=== PATIENT | male | born 1945 | race Caucasian/White ===

== ENCOUNTER 2020-01-15 18:11 | Observation (INO) | payer MEDICARE, OTHER ==
[~2020-01-15] VITALS: Ht 175.3 cm; Wt 93.9 kg
--- NOTE | 2020-01-15 18:20 | NUR ---
Pt's complaints and status was discussed with MD [place] who ordered CT head no contrast.
[2020-01-15 19:50] LABS: BASOPHILS % (AUTO) 0.7 % (0-1); EOSINOPHILS # (AUTO) 0.1 X10'3 (0-0.9); EOSINOPHILS % (AUTO) 2.1 % (0-6); HEMATOCRIT 40.9 % (42.0-52.0); HEMOGLOBIN 14.2 g/dl (14.0-17.9); LYMPHOCYTES % (AUTO) 18.5 % (21-51); MEAN CORPUSCULAR HEMOGLOBIN 31.2 PG (27.0-31.0); MEAN CORPUSCULAR HGB CONC 34.7 g/dL (33.0-36.5); MEAN CORPUSCULAR VOLUME 89.9 FL (78-98); MEAN PLATELET VOLUME 7.8 FL (7.4-10.4); MONOCYTES # (AUTO) 0.4 X10'3 (0-0.9); NEUTROPHILS # (AUTO) 3.9 X10'3 (1.8-7.7); NEUTROPHILS % (AUTO) 71.7 % (42-75); PLATELET COUNT 210 X10'3 (140-440); RED BLOOD COUNT 4.55 X10'6 (4.70-6.10); RED CELL DISTRIBUTION WIDTH 13.7 % (11.5-14.5); WHITE BLOOD COUNT 5.4 X10'3 (4.5-11.0)
[2020-01-15 20:09] LABS: CHLORIDE 107 MMOL/L (99-107); POTASSIUM 3.3 MMOL/L (3.5-5.1); SODIUM 141 MMOL/L (135-145)
[2020-01-15] MEDS ORDERED: aspirin 325mg tablet PO ONE (20:45)
[2020-01-15 21:54] LABS: CLARITY,URINE CLEAR (Clear); COLOR,URINE YELLOW (Yellow); GLUCOSE, URINE NEGATIVE (Neg); KETONES,URINE 15 mg/dl (Neg); LEUKOCYTE ESTERASE ,URINE NEGATIVE (Neg); NITRITES, URINE NEGATIVE (Neg); OCCULT BLOOD,URINE NEGATIVE (Neg); PH,URINE 5.5 (4.8-8.0); PROTEIN,URINE NEGATIVE (Neg); UROBILINOGEN,URINE 0.2 E.U/dL (0.2-1.0)
[2020-01-15 21:55] LABS: UA COLLECTION TYPE CLN CATCH MIDSTREAM
[2020-01-15 22:41] LABS: ALANINE AMINOTRANSFERASE 25 U/L (12-78); ALBUMIN/GLOBULIN RATIO 1.5 (1.1-1.5); ALKALINE PHOSPHATASE 37 IU/L (46-116); ANION GAP 14 (8-16); ASPARTATE AMINO TRANSFERASE 14 U/L (10-37); BILIRUBIN,TOTAL 0.3 MG/DL (0.1-1.0); BLOOD UREA NITROGEN 15 MG/DL (7-18); BUN/CREATININE RATIO 17.6 (5.4-32.0); CALCIUM 8.8 MG/DL (8.5-10.1); CREATININE 0.85 MG/DL (0.60-1.10); GLUCOSE 105 MG/DL (70-104); TOTAL CARBON DIOXIDE 19.9 MMOL/L (24-32); TOTAL PROTEIN 6.6 G/DL (6.4-8.2); eGFR 88 ML/MIN
[2020-01-15] MEDS ORDERED: NO HOME MEDS ×2 (22:55→23:39)
[2020-01-15] MEDS ORDERED: potassium Cl 20 mEq SR tablet PO ONE (22:55)
[2020-01-15 23:01] LABS: PARTIAL THROMBOPLASTIN TIME 26 SECONDS (22-32)
[2020-01-15] MEDS ORDERED: acetaminophen 325mg tablet PO PRN (23:45)
[2020-01-16 00:30] VITALS: BP 164/77
[2020-01-16 02:16] VITALS: BP 152/77
[2020-01-16 06:00] VITALS: BP 133/76
[2020-01-16 06:18] LABS: CHOL/HDL RATIO 2.7 (0.00-4.99); CHOLESTEROL 189 MG/DL (0-200); HDL CHOLESTEROL 69 MG/DL (35-60); LDL CHOLESTEROL 111 MG/DL (50-100); TRIGLYCERIDES 33 MG/DL (20-135)
--- NOTE | 2020-01-16 06:24 | NUR ---
Student documentation: I have reviewed and agree with all interventions, assessments performed and documented by Latoya DEAN. Student Medication Administration: For this medication-pass time frame, all medication were reviewed, dispensed, administered and documented per hospital policy by Latoya DEAN.
--- NOTE | 2020-01-16 06:33 | NUR ---
Problems reprioritized. Patient report given, questions answered & plan of care reviewed with Samuel CAAL.
[2020-01-16] MEDS ORDERED: heparin, porcine 5000 units/ml vial SQ SCH (08:00)
[2020-01-16] MEDS ORDERED: aspirin 81mg tablet.DR PO ONE (10:50)
[2020-01-16] MEDS ORDERED: potassium Cl 20 mEq SR tablet PO STA (11:08)
--- NOTE | 2020-01-16 12:31 | NUR ---
PAGER ID: [phone] MESSAGE: [id number] would like to be dc home [phone]
[2020-01-16] MEDS ORDERED: ASPI-1071 PO (13:37)
[2020-01-16] MEDS ORDERED: ATOR20TA66 PO (13:37)
[2020-01-17] MEDS ORDERED: aspirin 81mg tablet.DR PO SCH (08:00)
[2020-01-17] MEDS ORDERED: atorvastatin 20mg tablet PO SCH (08:00)
== END 2020-01-16 15:00 | disposition home or self-care (01) ==
LOC: ER 18:13 → ED HOLD 23:58 → ORTHO 4S 01-16 00:15
PROVIDERS: ADMIT Internal Medicine; ATTEND Family Medicine
DX: G45.9 Transient cerebral ischemic attack, unspecified (principal); I10 Essential (primary) hypertension; Z79.82 Long term (current) use of aspirin; Z79.899 Other long term (current) drug therapy
CPT/HCPCS: 36415; 70450; 70551; 80053; 80061; 81003; 83036; 84484; 85025; 85610; 85730; 87081; 93005; 93306; 93880; 96372; 99285; G0378; J1644